=== PATIENT | female | born 1970 | race African-American/Black ===

== ENCOUNTER 2018-11-15 06:27 | Inpatient (IN) | payer OTHER ==
[2018-11-11 17:57] VITALS: BMI 33.0
[2018-11-15] MEDS ORDERED: HEPARIN NA (PORCINE) 5,000 UNITS/ML 1ML VIAL ONE (07:41)
[2018-11-15] MEDS ORDERED: THROMBIN (BOVINE) 5,000 UNIT VIAL TP ONE ×2 (07:42→10:14)
[2018-11-15] MEDS ORDERED: BENZOIN TINCTURE SWABSTICK TP ONE (07:42)
[2018-11-15] MEDS ORDERED: PROPOFOL 20 ML ONE ×14 (07:53→10:55)
[2018-11-15] MEDS ORDERED: fentaNYL CITRATE 250 MCG/5 ML VIAL ONE ×2 (07:53)
[2018-11-15] MEDS ORDERED: SUCCINYLCHOLINE CHLORIDE 200 MG/10 ML VIAL ONE (07:54)
[2018-11-15] MEDS ORDERED: MIDAZOLAM HCL 2 MG/2 ML SINGLE DOSE VIAL ONE (07:54)
[2018-11-15] MEDS ORDERED: ROCURONIUM BROMIDE 50 MG/5 ML VIAL ONE ×2 (07:54)
[2018-11-15] MEDS ORDERED: DEXAMETHASONE SOD PHOSPHATE/PF 10 MG/ML SDV ONE (08:01)
[2018-11-15] MEDS ORDERED: ROPIVACAINE HCL 0.5% 30ML VIAL ONE (08:01)
[2018-11-15] MEDS ORDERED: ceFAZolin SODIUM 1 GM VIAL IVPB ONE ×3 (09:05→11:50)
[2018-11-15] MEDS ORDERED: VANCOMYCIN 1,000 MG VIAL (RESTRICTED TO ID ONLY) IVPB ONE (09:15)
[2018-11-15] MEDS ORDERED: PHENYLEPHRINE HCL 10 MG/1 ML SINGLE DOSE VIAL ONE (10:28)
[2018-11-15] MEDS ORDERED: TRANEXAMIC ACID 1000 MG/10 ML VIAL ONE (10:28)
[2018-11-15] MEDS ORDERED: ceFAZolin SODIUM 1 GM VIAL ONE (10:46)
[2018-11-15] MEDS ORDERED: ONDANSETRON 4 MG/2 ML VIAL ONE (10:46)
[2018-11-15] MEDS ORDERED: VANCOMYCIN 1,000 MG VIAL (RESTRICTED TO ID ONLY) ONE (10:46)
--- NOTE | 2018-11-15 12:35 | PN ---
Progress Note (short form) - Note Progress Note: 48F s/p L4, L5, S1 laminectomies; L3 laminotomy; L4-L5, L5-S1 discectomy; L4-L5 , L5-S1 PLIF; insertion biomechanical devices L4-L5, L5-S1; L4-L5, L5-S1 posterior arthrodesis; L4-L5, L5-S1 posterior instrumentation POD #0. -Admit to ICU post-op. -Pain control: per anaesthesia team; recommend METER SHOP SUPERINTENDENT; No NSAID's. -DVT PPx: - Mechanical only: JIM's, SCD's. -Incentive spirometry q15min. -PT/OT/Rehab, OOB. -WBAT B/L LE. -q4h B/L LE NV checks. -Post-op antibiotics x 2 doses. -NPO until flatus. -f/u AM labs. -f/u drain output. -d/c Durand catheter when patient ambulating comfortably. -Care per medical hospitalist team. -No bending, lifting more than 5lbs, or twisting x 6 months. -Discharge planning: f/u 11/26/2018 at [facility] [place] office; call for appointment; . -Will follow. Bao Torres MD (Orthopaedic Surgery).
[2018-11-15] MEDS ORDERED: ONDANSETRON 4 MG/2 ML VIAL IVPUSH PRN ×2 (12:42→13:38)
[2018-11-15] MEDS ORDERED: LORATADINE 10 MG TABLET PO PRN (12:42)
--- NOTE | 2018-11-15 12:42 | OP ---
Operative Note - Note: Operative Date: 11/15/18 Pre-Operative Diagnosis: 1. L4-L5, L5-S1 intervertebral disc disorder with associated lower extremity radiculopathy. 2. L4-L5, L5-S1 spinal stenosis with neurogenic claudication. 3. L4-L5, L5-S1 segmental instability. Operation: 1. L4, L5, S1 laminectomies. 2. L3 laminotomy. 3. L4-L5, L5-S1 discectomy. 4. L4-L5, L5-S1 PLIF. 5. Insertion biomechanical devices L4-L5, L5 -S1. 6. L4-L5, L5-S1 posterior arthrodesis. 7. L4-L5, L5-S1 posterior instrumentation. 8. Bone autograft. 9. Bone allograft. 10. Bone marrow aspiration. 11. Stem cell autograft. 12. Complex wound closure (10cm). Post-Operative Diagnosis: Same as Pre-op Surgeon: Bao Torres Staff Scientist: Jerson Torres Anesthesiologist/RELAY ASSEMBLER: Bernard Mcdaniel Anesthesia: General Specimens Removed: L4-L5, L5-S1 discs Estimated Blood Loss (mls): 550 Blood Volume Replaced (mls): 175 (Cell saver) Fluid Volume Replaced (mls): 2,000 (Crystalloid) Operative Report Dictated: Yes
--- NOTE | 2018-11-15 13:18 | OP ---
DATE OF OPERATION: DATE OF DICTATION: 11/15/2018 SURGEON: Bao Torres MD WINDERMAN: Jerson Torres MD PREOPERATIVE DIAGNOSIS: Lumbar disk prolapse with stenosis L4-L5, L5-S1 with associated segmental instability L4-L5, L5-S1. POSTOPERATIVE DIAGNOSIS: Lumbar disk prolapse with stenosis L4-L5, L5-S1 with associated segmental instability L4-L5, L5-S1. OPERATION PERFORMED: 1. Laminectomy L4-L5. 2. Diskectomy L4-L5, L5-S1. 3. Posterior lumbar interbody fusion with autologous bone graft and interbody cage mechanical device at L4-L5, L5-S1. 4. Pedicle screw instrumentation L4-L5, L5-S1. 5. Posterior lateral arthrodesis L4-L5, L5-S1. 6. Incidental durotomy and primary repair. 7. Use of biplanar fluoroscopy and intraoperative neural monitoring. 8. Use of autologous bone graft expanded with allograft and stem cells, bone marrow concentrate. ANESTHESIA: General. ANTIBIOTICS GIVEN: 2 g Kefzol, 1 g vancomycin preoperative, 1 g Kefzol given intraoperatively. DESCRIPTION OF PROCEDURE: Patient was correctly identified. Brought to the operating room. Lumbar spine was prepped and draped in a routine manner with Betadine scrub solution, wiped off with alcohol, DuraPrep applied. Midline incision utilized. After careful verification of levels using lateral fluoroscopic x-ray , the appropriate dissection was taken through the skin and subcutaneous tissue to the tip of the spinous process down the spinous process, over the lamina and facet joints out to the tips of the transverse processes left and right and side. The intertransverse plane was packed with sponges. The verification of levels with anatomical guidelines combined with a lateral fluoroscopic x-ray confirming L4-L5, L5-S1. Using Leksell rongeurs as well as Kerrison upcuts, the L5-S1 laminae were resected. The flavum and complete decompression performed. Some epidural bleeding was dealt with with bipolar Bovie. At the time of the osteotomization of the canal that is imploding the lateral surface inwards, a small spike of bone caused a very small dural tear, which literally revealed leakage much like a geyser. A few No. 4 Nurolon sutures sufficed. The repair was sealed. Test of the dura was with about 3 or 4 Valsalva maneuvers. At the end of that, Surgicel with associated DuraSeal placed onto the already sealed up dura. At that point, we went ahead with the posterior lumbar interbody fusion retracting the dura at L4-L5 from the right to the left and at L5-S1 from the left to the right. The disks were clearly identified. Bipolar Bovie diathermized the veins. The disks were handled in an identical manner with an annulotomy performed posteriorly on the right L4-L5 and on the left L5-S1. Each disk was subjected to scrutiny under x-ray control . The alignment of the axel were appreciated. The disk material was removed with axel. Angelinaon upcuts to cut up the remaining annulus. At the end of that, a serrated curette was utilized in order to remove all remaining soft tissue off the endplates. Once the endplates were healthy, bleeding bone, each interbody space was packed with autologous bone, which was posterior bone that was harvested from the posterior ilium and seated into the interbody space at L4, L5, S1. Two Fortilink cages were used, 1 at L4-L5 and 1 at L5-S1. These were both 10-mm x 22-mm cages. These were press fitted into place , that is, shaving was a size 9 and a size 10 implant utilized. This gave solid fixation at the bone bed, and verification under x-ray revealed excellent positioning of the actual cages. Once they had been completed, the pedicles of L4, L5, S1 were identified using anatomic guidelines using a drill to enter the pedicle appropriately. This enabled accurate seated as close to the endplate as possible. The screws measured size 40 x 6 mm at L4-L5 and size 7.5 x 35 at L5-S1. Screw seating was verified on lateral and AP fluoroscopic x-ray, and neural monitoring revealed complete, safe passage of these screws. Rods were applied to the tulips and the screw heads fixed with the appropriate caps and tightened with the torque device appropriately. No Crosslinks utilized. Too small a space to fix a Crosslink. Dura was then again tested and found to be completely sealed. The posterior lateral arthrodesis was then completed by retracting the muscle laterally and packing the intertransverse plane with autologous bone graft, which was a mixture of autologous as well as allograft corporate compliance officer chips mixed with stem cells, which was the bone marrow aspirate concentrate harvested from the left posterior ilium. This was liberally seated into the L4-L5 alar space to provide a rich bone grafting component. The wounds were thoroughly lavaged. The muscle was trimmed for damaged muscle. Closure muscle 1 Vicryl, fascia 1 Vicryl, subcutaneous 1-0 and 2-0 Vicryl, skin 3-0 Monocryl with Steri-Strips. Drainage, nil. Overall comment, operation tolerated well. No complications except for the small dural tear. MD EBER Mitchell/[id number] MTDD
[2018-11-15] MEDS ORDERED: NEOSTIGMINE METHYLSULFATE 0.5 MG/1 ML - 10 ML MDV ONE (13:25)
[2018-11-15] MEDS ORDERED: LACTATED RINGERS SOLUTION 1,000 ML IV SCH (13:45)
[2018-11-15] MEDS: ACETAMINOPHEN 1000 MG/100 ML VIAL (NON FORMULARY) IVPB SCH ×2 (13:55→18:04)
[2018-11-15] MEDS ORDERED: ACETAMINOPHEN INJECTION 100 ML IVPB ONE (13:55)
[2018-11-15] MEDS: LACTATED RINGERS SOLUTION 1,000 ML IV SCH (14:15)
[2018-11-15] MEDS: HYDROmorphone *PCA* 10MG/50ML DISP.SYRIN PCA SCH (15:25)
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
[2018-11-15] MEDS ORDERED: PHENOL 177 ML SPRAY BOTTLE MM PRN (19:00)
[2018-11-15] MEDS ORDERED: FLUCONAZOLE 100 MG TABLET (UD) PO ONE (19:15)
[2018-11-15] MEDS: ceFAZolin 2 GRAM PREMIX BAG IVPB SCH (20:25)
[2018-11-16] MEDS: ACETAMINOPHEN 1000 MG/100 ML VIAL (NON FORMULARY) IVPB SCH (02:10)
[2018-11-16] MEDS: ceFAZolin 2 GRAM PREMIX BAG IVPB SCH (03:40)
[2018-11-16 06:28] LABS: HEMATOCRIT 28.2 % (32.4-45.2); HEMOGLOBIN 9.4 GM/dL (10.7-15.3); MCH 27.1 pg (25.7-33.7); MCHC 33.3 g/dl (32.0-36.0); MEAN CELL VOLUME 81.2 fl (80-96); MEAN PLT VOLUME 8.7 fl (7.5-11.1); PLATELET COUNT 179 K/MM3 (134-434); RBC 3.47 M/mm3 (3.60-5.2); RDW 15.1 % (11.6-15.6)
--- NOTE | 2018-11-16 07:21 | PN ---
Physical Exam: SUBJECTIVE: Patient seen and examined at bedside this morning. She does not endorse acute complaints. States pain is well controlled with Dilaudid CABLE RESPOOLER. She has not yet passed flatus, or had bowel movement. Denies subjective fevers, chills, chest pain, palpitations, abdominal pain, nausea, vomiting. OBJECTIVE: Vital Signs Period Temp Pulse Resp BP Sys/Porter Pulse Ox Last 24 Hr 97.9 F-99.6 F 62-90 10-20 100-135/56-93 10-100 GENERAL: Awake, alert, and fully oriented, in no acute distress. HEAD: Normal with no signs of trauma. EYES: Pupils equal, round and reactive to light, extraocular movements intact, sclera anicteric, conjunctiva clear. EARS, NOSE, THROAT: Oropharynx clear without exudates. Moist mucous membranes. NECK: Supple without lymphadenopathy, or JVD. LUNGS: Breath sounds equal, clear to auscultation bilaterally. No wheezes, and no crackles. No accessory muscle use. HEART: Regular rate and rhythm, normal S1 and S2 without murmur, rub or gallop. ABDOMEN: Obese. Soft, nontender, not distended. Normoactive bowel sounds X4 quadrants, no guarding, no rebound tenderness. No hepatomegaly palpated or percussed. MUSCULOSKELETAL: Normal range of motion at all joints. No bony deformities or tenderness. UPPER EXTREMITIES: 2+ radial pulses bilaterally, warm, well-perfused. Strength 5 /5 b/l upper extremities. LOWER EXTREMITIES: 2+ doralis pedis pulses, warm, well-perfused. No calf tenderness. No peripheral edema. Strength 5/5 bilateral lower extremities. Sensation intact bilaterally. NEUROLOGICAL: Cranial nerves II-XII intact. Normal speech. No gross focal deficits. PSYCHIATRIC: Cooperative. Good eye contact. Appropriate mood and affect upon my encounter SKIN: Warm, dry. Surgical site bandaged clean, dry. Laboratory Results - last 24 hr 11/15/18 11/15/18 11/16/18 06:35 13:30 05:30 WBC 10.0 RBC 3.47 L Hgb 9.4 L Hct 28.2 L MCV 81.2 MCH 27.1 MCHC 33.3 RDW 15.1 Plt Count 179 MPV 8.7 Blood Type O POSITIVE O POSITIVE Antibody Screen Negative Active Medications Generic Name Dose Route Start Last Admin Trade Name Freq PRN Reason Stop Dose Admin Cholecalciferol 1,000 unit 11/16/18 10:00 Vitamin D3 - PO DAILY KRYSTA Hydrochlorothiazide 25 mg 11/16/18 10:00 Hctz - PO DAILY KRYSTA Hydromorphone HCl 0.2 mg 11/15/18 14:45 11/15/18 15:25 Dilaudid Farmer Vegetable - CABLE RESPOOLER 11/22/18 14:40 0.2 mg CABLE RESPOOLER KRYSTA Administration Protocol Lactated Ringer's 1,000 mls @ 125 mls/hr 11/15/18 12:45 11/15/18 14:15 Lactated Ringers Solution IV 300 mls ASDIR KRYSTA Administration Loratadine 10 mg 11/15/18 12:42 Claritin - PO PRN PRN allergies Losartan Potassium 100 mg 11/16/18 10:00 Cozaar - PO DAILY KRYSTA Ondansetron HCl 4 mg 11/15/18 12:42 Zofran Injection IVPUSH Q6H PRN NAUSEA AND/OR VOMITING Phenol/Menthol 1 spray 11/15/18 19:00 11/15/18 21:20 Chloraseptic - MM 1 sprays Q6H PRN Administration SORE THROAT ASSESSMENT/PLAN: Patient is a 48 year old female with history of hypertension, allergies, s/p L3 laminotomy; L4- S1 laminectomies, discectomy; PLIF; posterior arthrodesis; posterior instrumentation. Cardiovascular Hypertension -Hydrochlorothiazide 25mg PO daily -Losartan 100mg PO daily -Monitor vital signs closely Pulmonary -No respiratory distress. Saturating well on room air -Chloraseptic spray for sore throat -Incentive spirometer Q15 minutes -Maintain oxygen saturation greater than 90%. Musculoskeletal -Patient is POD #1 s/p L4, L5, S1 laminectomies; L3 laminotomy; L4-L5, L5-S1 discectomy; L4-L5, L5-S1 PLIF; insertion biomechanical devices L4-L5, L5-S1; L4- L5, L5-S1 posterior arthrodesis; L4-L5, L5-S1 posterior instrumentation with Dr. Torres. -Neuro checks Q4H -Dilaudid CABLE RESPOOLER for pain control -Ofirmev 1000mg IV Q8H PRN -Follow drain, lange catheter outputs. D/C lange catheter today. -Physical therapy evaluation Gastrointestinal -Patient is NPO until passing flatus. -IV Lactated Ringer's at 125mL/ hour -Zofran 4mg IV Q6H PRN for nausea, vomiting -Colace 100mg PO -Miralax 17 grams PO ID -Patient received Cefazolin 2grams IV x2 doses post-operatively FEN -IV Lactated Ringer's at 125mL/ hour -Within normal limits, follow CMP and replete as necessary -NPO until passing flatus Prophylaxis -No chemical anticoagulation, per surgery. -SCDs, TEDs bilateral lower extremities Disposition: -Patient for transfer to medical-surgical floor per surgery. Visit type - Emergency Visit Emergency Visit: Yes ED Registration Date: 11/15/18 Care time: The patient presented to the Emergency Department on the above date and was hospitalized for further evaluation of their emergent condition. - New Patient This patient is new to me today: No - Critical Care Critical Care patient: Yes Total Critical Care Time (in minutes): 35 Critical Care Statement: The care of this patient involved high complexity decision making to prevent further life threatening deterioration of the patient 's condition and/or to evaluate & treat vital organ system(s) failure or risk of failure. - Discharge Referral Referred to [facility] Med P.C.: No
[2018-11-16 09:01] LABS: ANION GAP 7 MMOL/L (8-16); CALCIUM 8.4 mg/dL (8.5-10.1); CHLORIDE 105 mmol/L (98-107); CO2 32 mmol/L (21-32); GLUCOSE,RANDOM 119 mg/dL (74-106); POTASSIUM 4.2 mmol/L (3.5-5.1); SODIUM 143 mmol/L (136-145)
[2018-11-16] MEDS ORDERED: PT OWN MED DRAWER 7, Y5N ONE (09:12)
[2018-11-16] MEDS ORDERED: LOSARTAN POTASSIUM 50 MG TABLET (FP) PO SCH (10:00)
[2018-11-16] MEDS ORDERED: HYDROCHLOROTHIAZIDE 25 MG TABLET (FP) PO SCH (10:00)
[2018-11-16] MEDS ORDERED: CHOLECALCIFEROL (VITAMIN D3) 1,000 UNIT TABLET (FP) PO SCH (10:00)
--- NOTE | 2018-11-16 11:50 | PN ---
Teaching Attending Note Name of Resident: John Jeanne ATTENDING PHYSICIAN STATEMENT I saw and evaluated the patient. I reviewed the resident's note and discussed the case with the resident. I agree with the resident's findings and plan as documented. SUBJECTIVE: Patient seen and examined in the ICU. Awake and alert. Pain seems controlled on Dilaudid RN POST PARTUM. No CP or SOB. Some cough with scant clear sputum. Intake & Output 11/13/18 11/14/18 11/15/18 11/16/18 23:59 23:59 23:59 23:59 Intake Total 3500 Output Total 2950 Balance 550 Weight 175 lb Last Vital Signs Temp Pulse Resp BP Pulse Ox 98.0 F 93 H 24 H 105/85 99 11/16/18 10:00 11/16/18 10:00 11/16/18 10:00 11/16/18 10:00 11/16/18 09:00 Active Medications Cholecalciferol (Vitamin D3 -) 1,000 unit PO DAILY [facility] Last Admin: 11/16/18 09:31 Dose: 1,000 unit Hydrochlorothiazide (Hctz -) 25 mg PO DAILY [facility] Last Admin: 11/16/18 09:35 Dose: Not Given Hydromorphone HCl (Dilaudid Clinical Product Specialist -) 0.2 mg RN POST PARTUM RN POST PARTUM [facility]; Protocol Stop: 11/22/18 14:40 Last Admin: 11/15/18 15:25 Dose: 0.2 mg Lactated Ringer's (Lactated Ringers Solution) 1,000 mls @ 125 mls/hr IV ASDIR [facility] Last Admin: 11/15/18 14:15 Dose: 300 mls Loratadine (Claritin -) 10 mg PO PRN PRN PRN Reason: allergies Losartan Potassium (Cozaar -) 100 mg PO DAILY [facility] Last Admin: 11/16/18 09:35 Dose: Not Given Ondansetron HCl (Zofran Injection) 4 mg IVPUSH Q6H PRN PRN Reason: NAUSEA AND/OR VOMITING Phenol/Menthol (Chloraseptic -) 1 spray MM Q6H PRN PRN Reason: SORE THROAT Last Admin: 11/15/18 21:20 Dose: 1 sprays GENERAL: Awake, alert, and fully oriented, in no acute distress. HEAD: Normal with no signs of trauma. EYES: Pupils equal, round and reactive to light, extraocular movements intact, sclera anicteric, conjunctiva clear. EARS, NOSE, THROAT: Oropharynx clear without exudates. Moist mucous membranes. NECK: Supple without lymphadenopathy, or JVD. LUNGS: Breath sounds equal, clear to auscultation bilaterally. No wheezes, and no crackles. No accessory muscle use. HEART: Regular rate and rhythm, normal S1 and S2 without murmur, rub or gallop. ABDOMEN: Obese. Soft, nontender, not distended. Normoactive bowel sounds X4 quadrants, no guarding, no rebound tenderness. No hepatomegaly palpated or percussed. MUSCULOSKELETAL: Normal range of motion at all joints. No bony deformities or tenderness. UPPER EXTREMITIES: 2+ radial pulses bilaterally, warm, well-perfused. Strength 5 /5 b/l upper extremities. LOWER EXTREMITIES: 2+ doralis pedis pulses, warm, well-perfused. No calf tenderness. No peripheral edema. Strength 5/5 bilateral lower extremities. Left foot noted cooler than right foot (patient states chronic finding). Sensation intact bilaterally. NEUROLOGICAL: Cranial nerves II-XII intact. Normal speech. No gross focal deficits. PSYCHIATRIC: Cooperative. Good eye contact. Appropriate mood and affect upon my encounter SKIN: Warm, dry. Surgical site bandaged clean, dry. ASSESSMENT/PLAN: POD #1: L4, L5, S1 laminectomies; L3 laminotomy; L4-L5, L5-S1 discectomy; L4-L5 , L5-S1 PLIF; insertion biomechanical devices L4-L5, L5-S1; L4-L5, L5-S1 posterior arthrodesis; L4-L5, L5-S1 posterior instrumentation HTN ABX IVF Pain control O2 as needed VTE prophylaxis Neuro checks PO when passing flatus Incentive Spirometry PT evaluation Follow I & O Floor when OK with surgery Dr Paulino
[2018-11-16 12:00] LABS: BLOOD UREA NITROGEN 12 mg/dL (7-18)
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
[2018-11-16] MEDS ORDERED: DOCUSATE SODIUM 100 MG CAPSULE (FP) PO ONE (12:49)
[2018-11-16] MEDS ORDERED: POLYETHYLENE GLYCOL 3350 119 GM BTL PO ONE (12:49)
--- NOTE | 2018-11-16 14:36 | PN ---
Progress Note (short form) - Note Progress Note: Anesthesia POD#1 S/P 3 level Lumbar Spinal Fusion under GA and TLIP Block VSS,feeling a little dizzy,no N/V,OOB to chair,using Dilaudid DENTURE WAXER Pain is poorly controlled. A/P Continue the Dilaudid DENTURE WAXER,some oral pain meds can be added. Lauren Reese MD.
[2018-11-16] MEDS ORDERED: LORATADINE 10 MG TABLET PO PRN (14:37)
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
[2018-11-16] MEDS: LACTATED RINGERS SOLUTION 1,000 ML IV SCH (20:00)
[2018-11-16] MEDS: ACETAMINOPHEN 500 MG TABLET (FP) PO PRN (22:27)
[2018-11-17] MEDS: LACTATED RINGERS SOLUTION 1,000 ML IV SCH ×3 (04:18→14:28)
[2018-11-17] MEDS: HYDROmorphone *PCA* 10MG/50ML DISP.SYRIN PCA SCH (04:27)
[2018-11-17 07:20] LABS: HEMATOCRIT 28.3 % (32.4-45.2); HEMOGLOBIN 9.5 GM/dL (10.7-15.3); MCHC 33.7 g/dl (32.0-36.0); MEAN PLT VOLUME 8.5 fl (7.5-11.1); PLATELET COUNT 180 K/MM3 (134-434); RBC 3.53 M/mm3 (3.60-5.2); RDW 14.6 % (11.6-15.6); WHITE BLOOD COUNT 9.6 K/mm3 (4.0-10.0)
[2018-11-17] MEDS ORDERED: PHENOL 177 ML SPRAY BOTTLE MM PRN (07:58)
[2018-11-17] MEDS ORDERED: HYDROmorphone *PCA* 10MG/50ML DISP.SYRIN PCA SCH ×2 (07:58→15:00)
[2018-11-17] MEDS ORDERED: ONDANSETRON 4 MG/2 ML VIAL IVPUSH PRN (07:58)
--- NOTE | 2018-11-17 08:39 | PN ---
Physical Exam: SUBJECTIVE: Patient evaluated this morning and reports her pain is present but tolerable. She has not passed gas yet. No other acute complaints. Fever overnight. OBJECTIVE: Vital Signs Temperature 99.3 F 11/17/18 06:34 Pulse Rate 105 H 11/17/18 06:34 Respiratory Rate 20 11/17/18 06:34 Blood Pressure 130/77 11/17/18 06:34 O2 Sat by Pulse Oximetry (%) 97 11/16/18 21:00 GENERAL: The patient is awake, alert, and fully oriented, in no acute distress. LUNGS: Breath sounds equal, clear to auscultation bilaterally, no wheezes, no crackles HEART: Regular rate and rhythm, S1, S2 without murmur, rub or gallop. ABDOMEN: Soft, nontender, nondistended,hypoactive bowel sounds EXTREMITIES: 2+ pulses, warm, well-perfused, no edema. NEUROLOGICAL: Cranial nerves II through XII grossly intact. Normal speech, gait not observed. PSYCH: Normal mood, normal affect. SKIN: Warm, dry, normal turgor, no rashes or lesions noted CBC, BMP 11/17/18 06:00 11/16/18 05:30 Active Medications Acetaminophen (Tylenol -) 1,000 mg PO Q6H PRN PRN Reason: PAIN LEVEL 6-10 Last Admin: 11/16/18 22:27 Dose: 1,000 mg Cholecalciferol (Vitamin D3 -) 1,000 unit PO DAILY KRYSTA Hydrochlorothiazide (Hctz -) 25 mg PO DAILY KYRSTA Hydromorphone HCl (Dilaudid Dye And Chemical Coordinator -) 0.2 mg LUMBER STACKER DRIVER LUMBER STACKER DRIVER KRYSTA; Protocol Stop: 11/22/18 14:40 Lactated Ringer's (Lactated Ringers Solution) 1,000 mls @ 125 mls/hr IV ASDIR KRYSTA Loratadine (Claritin -) 10 mg PO DAILY PRN PRN Reason: allergies Losartan Potassium (Cozaar -) 50 mg PO DAILY KRYSTA Ondansetron HCl (Zofran Injection) 4 mg IVPUSH Q6H PRN PRN Reason: NAUSEA AND/OR VOMITING Phenol/Menthol (Chloraseptic -) 1 spray MM Q6H PRN PRN Reason: SORE THROAT ASSESSMENT/PLAN: #s/p L 3 laminectomy, L4-l5, L5-S1 discectomy; L4-L5, L5-S1 PLIF, posterior instrumentation - Oxycontin 10 mg q12 - Oxycodone f5 mg & 10 mg per pain scale - NPO until flatus - PT - LR @ 125 - spirometry q 1h - cath until ambulatory - CXR shows atelectasis at base - tylenol prn fever #anemia, normocytic - continue to monitor, no baseline - Hgb : 9.5 - asymptomatic #HTN - Losartan 50 mg po daily - HCTZ 25 mg daily #DVT ppx - SCD's Dispo: re evaluate tommorrow Visit type - Emergency Visit Emergency Visit: No - New Patient This patient is new to me today: Yes Date on this admission: 11/17/18 - Critical Care Critical Care patient: No
[2018-11-17] MEDS: HYDROCHLOROTHIAZIDE 25 MG TABLET (FP) PO SCH (09:48)
[2018-11-17] MEDS: LOSARTAN POTASSIUM 50 MG TABLET (FP) PO SCH (09:48)
[2018-11-17] MEDS: CHOLECALCIFEROL (VITAMIN D3) 1,000 UNIT TABLET (FP) PO SCH (09:51)
[2018-11-17] MEDS ORDERED: oxyCODONE HCL 5 MG TABLET PO PRN (11:47)
[2018-11-17] MEDS: oxyCODONE HCL 5 MG TABLET PO PRN (15:38)
--- NOTE | 2018-11-17 15:55 | PN ---
Progress Note (short form) - Note Progress Note: Pain Management Note Patient seen at bedside, METHODS STUDY ANALYST had been discontinued by primary team, dept of anesthesiology will sign off care at this time
--- NOTE | 2018-11-17 16:08 | PATH ---
Surgical Pathology Report Patient Name: TONIE GILMORE Med. Rec. #: [id number] /Age/Gender: 1970 (Age: 48) / F Account: [id number] Location: [facility] MED/SURG Taken: 11/15/2018 Received: 11/15/2018 Reported: 11/17/2018 Physicians: Bao Torres M.D. Specimen(s) Received L4-S1 DISC Clinical History Spondylosis with radiculopathy Final Diagnosis L4-S1 DISC, EXCISION: CARTILAGE WITH DEGENERATIVE CHANGES. BONE NO PATHOLOGIC FINDINGS. Electronically Signed Annelise Marks M.D. Gross Description Received in formalin labeled "L4-S1 disc," is a 4.0 x 3.5 x 0.4 cm aggregate of arteaga-red fragments of fibrocartilaginous tissue. A procurement representative portion is submitted in one cassette. /11/15/201811/15/2018
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
[2018-11-17] MEDS: oxyCODONE HCL 10 MG SUSTAINED ACTING TABLET PO SCH (21:28)
[2018-11-17] MEDS: ACETAMINOPHEN 500 MG TABLET (FP) PO PRN (21:29)
[2018-11-18] MEDS: LACTATED RINGERS SOLUTION 1,000 ML IV SCH (02:30)
[2018-11-18] MEDS: oxyCODONE HCL 5 MG TABLET PO PRN ×2 (07:50→16:25)
[2018-11-18 08:59] LABS: HEMATOCRIT 28.1 % (32.4-45.2); HEMOGLOBIN 9.2 GM/dL (10.7-15.3); MCH 26.6 pg (25.7-33.7); MCHC 32.8 g/dl (32.0-36.0); MEAN CELL VOLUME 81.3 fl (80-96); MEAN PLT VOLUME 8.7 fl (7.5-11.1); PLATELET COUNT 181 K/MM3 (134-434); RBC 3.46 M/mm3 (3.60-5.2); RDW 14.4 % (11.6-15.6); WHITE BLOOD COUNT 11.1 K/mm3 (4.0-10.0)
[2018-11-18 09:39] LABS: URINE APPEARANCE CLEAR; URINE BILIRUBIN NEGATIVE (<2.0 mg/dL); URINE COLOR YELLOW; URINE GLUCOSE (UA) NEGATIVE (NEGATIVE); URINE KETONE 1+ (NEGATIVE); URINE LEUK ESTERASE NEGATIVE (NEGATIVE); URINE NITRITE NEGATIVE (NEGATIVE); URINE PROTEIN 1+ (NEGATIVE); URINE UROBILINOGEN NEGATIVE mg/dL (0.2-1.0)
[2018-11-18] MEDS: oxyCODONE HCL 10 MG SUSTAINED ACTING TABLET PO SCH ×2 (09:48→21:58)
[2018-11-18] MEDS: CHOLECALCIFEROL (VITAMIN D3) 1,000 UNIT TABLET (FP) PO SCH (09:49)
[2018-11-18] MEDS: LOSARTAN POTASSIUM 50 MG TABLET (FP) PO SCH (09:49)
[2018-11-18] MEDS: HYDROCHLOROTHIAZIDE 25 MG TABLET (FP) PO SCH (09:49)
[2018-11-18 09:56] LABS: EPI CELLS RARE /HPF (FEW); URINE BACTERIA RARE /hpf (NONE SEEN); URINE MUCUS RARE
[2018-11-18 09:56] LABS: ANION GAP 8 MMOL/L (8-16); BLOOD UREA NITROGEN 7 mg/dL (7-18); CALCIUM 8.4 mg/dL (8.5-10.1); CHLORIDE 101 mmol/L (98-107); CO2 31 mmol/L (21-32); CREATININE 0.9 mg/dL (0.55-1.3); GLUCOSE,RANDOM 96 mg/dL (74-106); POTASSIUM 3.2 mmol/L (3.5-5.1); SODIUM 140 mmol/L (136-145)
--- NOTE | 2018-11-18 11:41 | PN ---
Physical Exam: SUBJECTIVE: Patient passed flatus and soft diet started. Patient able to walk and going to the bathroom, reports pain is well controlled with medication. Patient had fever overnight. OBJECTIVE: Vital Signs Temperature 100.7 F H 11/18/18 06:00 Pulse Rate 97 H 11/18/18 06:00 Respiratory Rate 20 11/18/18 06:00 Blood Pressure 127/69 11/18/18 06:00 O2 Sat by Pulse Oximetry (%) 96 11/17/18 20:27 GENERAL: The patient is awake, alert, and fully oriented, in no acute distress. LUNGS: Breath sounds equal, clear to auscultation bilaterally, no wheezes, no crackles HEART: Regular rate and rhythm, S1, S2 without murmur, rub or gallop. ABDOMEN: Soft, nontender, nondistended,hypoactive bowel sounds EXTREMITIES: 2+ pulses, warm, well-perfused, no edema. large dressing covering site of operation along lower back NEUROLOGICAL: ROM intact, sensation intact bilaterally PSYCH: Normal mood, normal affect. SKIN: Warm, dry, normal turgor, no rashes or lesions noted CBC, BMP 11/18/18 07:52 11/18/18 07:52 Active Medications Acetaminophen (Tylenol -) 1,000 mg PO Q6H PRN PRN Reason: PAIN LEVEL 6-10 Last Admin: 11/17/18 21:29 Dose: 1,000 mg Cholecalciferol (Vitamin D3 -) 1,000 unit PO DAILY [facility] Last Admin: 11/18/18 09:49 Dose: 1,000 unit Hydrochlorothiazide (Hctz -) 25 mg PO DAILY [facility] Last Admin: 11/18/18 09:49 Dose: 25 mg Loratadine (Claritin -) 10 mg PO DAILY PRN PRN Reason: allergies Losartan Potassium (Cozaar -) 50 mg PO DAILY [facility] Last Admin: 11/18/18 09:49 Dose: 50 mg Ondansetron HCl (Zofran Injection) 4 mg IVPUSH Q6H PRN PRN Reason: NAUSEA AND/OR VOMITING Oxycodone HCl (Roxicodone -) 5 mg PO Q6H PRN PRN Reason: PAIN LEVEL 1-5 Oxycodone HCl (Oxycontin -) 10 mg PO BID [facility] Last Admin: 11/18/18 09:48 Dose: 10 mg Oxycodone HCl (Roxicodone -) 10 mg PO Q6H PRN PRN Reason: PAIN LEVEL 6-10 Last Admin: 11/18/18 07:50 Dose: 10 mg Phenol/Menthol (Chloraseptic -) 1 spray MM Q6H PRN PRN Reason: SORE THROAT ASSESSMENT/PLAN: #s/p L 3 laminectomy, L4-l5, L5-S1 discectomy; L4-L5, L5-S1 PLIF, posterior instrumentation, POD 4 - Oxycontin 10 mg q12 - Oxycodone 5 mg & 10 mg per pain scale - soft diet - patient walking with walker - spirometry q 1h - CXR shows atelectasis at base - tylenol prn fever - spoke with Dr. Torres, he will see patient over night and change dressing #fever - likely 2/2 to atelectasis - f/u UA #anemia, normocytic - continue to monitor, no baseline - Hgb : 9.2 - asymptomatic - f/u iron studies, Vb12, folate levels #HTN - Losartan 50 mg po daily - HCTZ 25 mg daily #DVT ppx - ambulation Dispo: likely leave tomorrow if afebrile overnight, will need discharge with walker Visit type - Emergency Visit Emergency Visit: No - New Patient This patient is new to me today: No - Critical Care Critical Care patient: No
[2018-11-18] MEDS ORDERED: POTASSIUM CHLORIDE TABS 20 MEQ TABLET.ER (FP) PO ONE (11:42)
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
[2018-11-18] MEDS: ACETAMINOPHEN 500 MG TABLET (FP) PO PRN (18:27)
[2018-11-19 06:50] LABS: HEMATOCRIT 27.5 % (32.4-45.2); HEMOGLOBIN 9.1 GM/dL (10.7-15.3); MCH 26.7 pg (25.7-33.7); MCHC 33.1 g/dl (32.0-36.0); MEAN CELL VOLUME 80.8 fl (80-96); MEAN PLT VOLUME 8.3 fl (7.5-11.1); PLATELET COUNT 215 K/MM3 (134-434); RDW 14.5 % (11.6-15.6); WHITE BLOOD COUNT 8.9 K/mm3 (4.0-10.0)
[2018-11-19 07:23] LABS: ANION GAP 5 MMOL/L (8-16); BLOOD UREA NITROGEN 10 mg/dL (7-18); CALCIUM 8.2 mg/dL (8.5-10.1); CHLORIDE 99 mmol/L (98-107); CO2 33 mmol/L (21-32); CREATININE 0.9 mg/dL (0.55-1.3); GLUCOSE,RANDOM 106 mg/dL (74-106); POTASSIUM 3.3 mmol/L (3.5-5.1); SODIUM 137 mmol/L (136-145)
[2018-11-19] MEDS ORDERED: CALCIUM (OYSTER SHELL) 500 MG TABLET (FP) PO ONE (08:50)
[2018-11-19] MEDS: POTASSIUM CHLORIDE TABS 20 MEQ TABLET.ER (FP) PO SCH ×2 (09:27→12:00)
[2018-11-19] MEDS: HYDROCHLOROTHIAZIDE 25 MG TABLET (FP) PO SCH (09:27)
[2018-11-19] MEDS: oxyCODONE HCL 10 MG SUSTAINED ACTING TABLET PO SCH ×2 (09:28→21:48)
[2018-11-19] MEDS: LOSARTAN POTASSIUM 50 MG TABLET (FP) PO SCH (09:28)
[2018-11-19] MEDS: CHOLECALCIFEROL (VITAMIN D3) 1,000 UNIT TABLET (FP) PO SCH (09:28)
--- NOTE | 2018-11-19 14:13 | PN ---
Physical Exam: SUBJECTIVE: Patient had another fever yesterday. Patient states the pain is getting better and she is walking well with a walker. Patient has no other acute complaints, she is tolerating her diet. OBJECTIVE: Vital Signs Temperature 98.8 F 11/19/18 10:00 Pulse Rate 101 H 11/19/18 10:00 Respiratory Rate 18 11/19/18 10:00 Blood Pressure 114/83 11/19/18 10:00 O2 Sat by Pulse Oximetry (%) 99 11/18/18 21:00 GENERAL: The patient is awake, alert, and fully oriented, in no acute distress. LUNGS: Breath sounds equal, clear to auscultation bilaterally, no wheezes, no crackles HEART: Regular rate and rhythm, S1, S2 without murmur, rub or gallop. ABDOMEN: Soft, nontender, nondistended,hypoactive bowel sounds EXTREMITIES: 2+ pulses, warm, well-perfused, no edema. large dressing covering site of operation along lower back NEUROLOGICAL: ROM intact, sensation intact bilaterally PSYCH: Normal mood, normal affect. SKIN: Warm, dry, normal turgor, no rashes or lesions noted CBC, BMP 11/19/18 05:45 11/19/18 05:45 Active Medications Acetaminophen (Tylenol -) 1,000 mg PO Q6H PRN PRN Reason: PAIN LEVEL 6-10 Last Admin: 11/18/18 18:27 Dose: 1,000 mg Cholecalciferol (Vitamin D3 -) 1,000 unit PO DAILY [facility] Last Admin: 11/19/18 09:28 Dose: 1,000 unit Hydrochlorothiazide (Hctz -) 25 mg PO DAILY [facility] Last Admin: 11/19/18 09:27 Dose: 25 mg Loratadine (Claritin -) 10 mg PO DAILY PRN PRN Reason: allergies Losartan Potassium (Cozaar -) 50 mg PO DAILY [facility] Last Admin: 11/19/18 09:28 Dose: 50 mg Ondansetron HCl (Zofran Injection) 4 mg IVPUSH Q6H PRN PRN Reason: NAUSEA AND/OR VOMITING Oxycodone HCl (Roxicodone -) 5 mg PO Q6H PRN PRN Reason: PAIN LEVEL 1-5 Oxycodone HCl (Oxycontin -) 10 mg PO BID [facility] Last Admin: 11/19/18 09:28 Dose: 10 mg Oxycodone HCl (Roxicodone -) 10 mg PO Q6H PRN PRN Reason: PAIN LEVEL 6-10 Last Admin: 11/18/18 16:25 Dose: 10 mg Phenol/Menthol (Chloraseptic -) 1 spray MM Q6H PRN PRN Reason: SORE THROAT ASSESSMENT/PLAN: #s/p L 3 laminectomy, L4-L5, L5-S1 discectomy; L4-L5, L5-S1 PLIF, posterior instrumentation, POD 5 - Oxycontin 10 mg q12 - Oxycodone 5 mg & 10 mg per pain scale - soft diet - patient walking with walker - spirometry q 1h - CXR shows atelectasis at base - tylenol prn fever - f/u Dr. Torres, evaluation of surgery following fever #fever - likely 2/2 to atelectasis - CXR clear - UA: no indication of UTI, f/u UCX - f/u blood cx #anemia, normocytic - continue to monitor, no baseline - Hgb : 9.1 - asymptomatic - Iron and transferrin low - Ferrous sulfate 325 mg po BID #HTN - Losartan 50 mg po daily - HCTZ 25 mg daily #DVT ppx - ambulation Dispo: patient can leave per Dr. Torres, likely tonight. Visit type - Emergency Visit Emergency Visit: No - New Patient This patient is new to me today: No - Critical Care Critical Care patient: No
[2018-11-19] MEDS: DOCUSATE SODIUM 100 MG CAPSULE (FP) PO SCH (14:51)
[2018-11-19] MEDS: oxyCODONE HCL 5 MG TABLET PO PRN (14:51)
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
--- NOTE | 2018-11-19 20:41 | PN ---
Progress Note (short form) - Note Progress Note: POD #4 Status post PLIF fusion L4/5 L5/S1 Intermittent fevers Full fever work up has been done. ? final assessment as to cause Atelectasis C/o mild incisional pain No leg pain Dysaesthesia R foot due to intraoperative traction on the nerve root to seat the cage Feels well Original pain gone Walked in the hallway Mskeletal Bandage dry Neuro At baseline Assess Doing well PLAN PT Mobilize D/C home with Pt and home services see in office for wound attention Leave dressing as it is sealed will take down in the office Pain Mx
[2018-11-19] MEDS: FERROUS SO4 325 MG TABLET (FP) PO SCH (21:47)
[2018-11-19] MEDS ORDERED: SENNOSIDES 8.6MG TABLET (FP) PO SCH (22:00)
[2018-11-20 08:43] LABS: HEMATOCRIT 28.2 % (32.4-45.2); HEMOGLOBIN 9.4 GM/dL (10.7-15.3); MCH 26.9 pg (25.7-33.7); MCHC 33.4 g/dl (32.0-36.0); MEAN CELL VOLUME 80.8 fl (80-96); MEAN PLT VOLUME 8.2 fl (7.5-11.1); PLATELET COUNT 258 K/MM3 (134-434); RBC 3.49 M/mm3 (3.60-5.2); RDW 14.6 % (11.6-15.6); WHITE BLOOD COUNT 8.1 K/mm3 (4.0-10.0)
[2018-11-20] MEDS ORDERED: PT OWN MED DRAWER 7, Y5N ONE (08:48)
[2018-11-20] MEDS: LOSARTAN POTASSIUM 50 MG TABLET (FP) PO SCH (09:11)
[2018-11-20] MEDS: HYDROCHLOROTHIAZIDE 25 MG TABLET (FP) PO SCH (09:11)
[2018-11-20] MEDS: DOCUSATE SODIUM 100 MG CAPSULE (FP) PO SCH (09:11)
[2018-11-20] MEDS: FERROUS SO4 325 MG TABLET (FP) PO SCH (09:11)
[2018-11-20] MEDS: CHOLECALCIFEROL (VITAMIN D3) 1,000 UNIT TABLET (FP) PO SCH (09:11)
[2018-11-20] MEDS: oxyCODONE HCL 10 MG SUSTAINED ACTING TABLET PO SCH (09:11)
[2018-11-20 09:34] LABS: ANION GAP 7 MMOL/L (8-16); BLOOD UREA NITROGEN 11 mg/dL (7-18); CALCIUM 8.6 mg/dL (8.5-10.1); CHLORIDE 100 mmol/L (98-107); CO2 31 mmol/L (21-32); GLUCOSE,RANDOM 105 mg/dL (74-106); POTASSIUM 4.4 mmol/L (3.5-5.1); SODIUM 137 mmol/L (136-145)
[2018-11-20 10:02] VITALS: BP 106/64; PULSE 95; TEMP 98.7
[2018-11-20] MEDS: oxyCODONE HCL 5 MG TABLET PO PRN (12:15)
--- NOTE | 2018-11-20 15:41 | DS ---
Physical Exam: SUBJECTIVE: Patient seen and examined with no complaints. Patient is walking with physical therapy. Patient afebrile overnight, examined by Dr. Torres. OBJECTIVE: Vital Signs Temperature 98.7 F 11/20/18 10:00 Pulse Rate 95 H 11/20/18 10:00 Respiratory Rate 20 11/20/18 10:00 Blood Pressure 106/64 11/20/18 10:00 O2 Sat by Pulse Oximetry (%) 98 11/20/18 09:00 PHYSICAL EXAM GENERAL: The patient is awake, alert, and fully oriented, in no acute distress. LUNGS: Breath sounds equal, clear to auscultation bilaterally, no wheezes, no crackles HEART: Regular rate and rhythm, S1, S2 without murmur, rub or gallop. ABDOMEN: Soft, nontender, nondistended,hypoactive bowel sounds EXTREMITIES: 2+ pulses, warm, well-perfused, no edema. large dressing covering site of operation along lower back NEUROLOGICAL: ROM intact, sensation intact bilaterally PSYCH: Normal mood, normal affect. SKIN: Warm, dry, normal turgor, no rashes or lesions noted LABS CBC, BMP 11/20/18 06:00 11/20/18 06:00 HOSPITAL COURSE: Date of Admission:11/15/18 Patient underwent L4, L5, S1 laminectomies, L3 laminotomy, L4-L5, L5-S1 discectomy, L4-L5, L5-S1 PLIF, Insertion biomechanical devices l5-S1, L4-L5, L5- S1 posterior arthrodesis, L4-L5, L5-S1 posterior instrumentation, Bone autograft , Bone allograft, Bone marrow aspiration, Stem cell autograft, Complex wound closure (10cm). patient was able to walk with PT. Patient became febrile, sepsis workup negative. Xray showed atelectasis, fever associated with atelectasis. Patient vitals remained stable. Urine CX: negative Blood CX: negative CXR: no acute process Date of Discharge: 11/20/18 Minutes to complete discharge: 41 Discharge Summary Reason For Visit: SPONDYLOSIS W RADICULPATHY Condition: Good - Instructions Diet, Activity, Other Instructions: You were admitted to the hospital for back surgery done by Dr. Torres. While you were recovering you had fevers, this has now resolved. This was due to atelectasis in your lungs. Atelectasis is when small parts of your lungs stick together. This is a very regular occurrence after surgery, continue to use the spirometer to help resolve the atelectasis. You were evaluated by Dr. Torres and you should make sure you make an appointment to follow up with him within a week. While you were here you were also found to be deficient in iron. Iron is important for your red blood cells. For your iron deficiency please take: Ferrous Sulfate 32 mg twice a day by mouth If the iron supplementation makes you constipated please use the following medication as needed to help: Colace 1 capsule by mouth as needed You may also use over the counter stool softeners Please continue the rest of your home medications as prescribed For your pain please take: Oxycodone 5 mg as needed every 6 hours, do not take more then 4 pills a day Please contact Dr. Torres if you need any more pain medication. Please remember not to bend, lift more than 5lbs regularly or excessive twisting for the next 6 months Please change your bandage daily with dry gauze. Do not submerge your wound and try to keep your bandage dry Please follow-up with Dr. Torres at the [facility] [place] office; call for an appointment at Please make an appointment to follow up with your primary care physician within one week. Return to the ED if you have an trouble going to the bathroom, sharp pains in your back or legs, chest pain, shortness of breath, nausea or vomiting. Referrals: Bao Torres MD [Staff Physician] - Disposition: HOME - Home Medications Comprehensive Discharge Medication List: Ambulatory Orders Cholecalciferol (Vitamin D3) [Vitamin D3] 1,000 unit PO DAILY 11/11/18 Hydrochlorothiazide [Hctz -] 25 mg PO DAILY 11/11/18 Loratadine [Claritin] 10 mg PO PRN PRN 11/11/18 Losartan Potassium 50 mg PO DAILY 11/11/18 Docusate Sodium [Colace -] 100 mg PO DAILY #30 capsule 11/19/18 Ferrous Sulfate 325 mg PO BID #60 tablet 11/19/18 Miscellaneous Medical Supply [Outpatient Order] 1 each ASDIR #1 misc oxyCODONE HCL [Roxicodone -] 5 mg PO Q6H PRN 4 Days #14 tablet MDD 20mg This patient is new to me today: No Emergency Visit: No Critical Care patient: No - Discharge Referral Referred to [facility] No
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
== END 2018-11-20 15:29 | disposition home or self-care (01) | DRG 454 ==
LOC: JSAMEDAYSX 06:27 → JICU 16:18 → J8W 11-16 17:20
PROVIDERS: ADMIT Orthopaedic Surgery Orthopaedic Surgery of the Spine
PROC: 0SG3071 Fusion of Lumbosacral Joint with Autologous Tissue Substitute, Posterior Approach, Posterior Column, Open Approach (ICD-10-PCS; 2018-11-15)
PROC: 0SG10AJ Fusion of 2 or more Lumbar Vertebral Joints with Interbody Fusion Device, Posterior Approach, Anterior Column, Open Approach (ICD-10-PCS; 2018-11-15)
PROC: 00U20KZ Supplement Dura Mater with Nonautologous Tissue Substitute, Open Approach (ICD-10-PCS; 2018-11-15)
PROC: 00Q20ZZ Repair Dura Mater, Open Approach (ICD-10-PCS; 2018-11-15)
PROC: XRG New Technology, Joints, Fusion (ICD-10-PCS; 2018-11-15)
PROC: 07DR0ZZ Extraction of Iliac Bone Marrow, Open Approach (ICD-10-PCS; 2018-11-15)
PROC: B01BZZZ Fluoroscopy of Spinal Cord (ICD-10-PCS; 2018-11-15)
PROC: 4A1004G Monitoring of Central Nervous Electrical Activity, Intraoperative, Open Approach (ICD-10-PCS; 2018-11-15)
PROC: 0SG30AJ Fusion of Lumbosacral Joint with Interbody Fusion Device, Posterior Approach, Anterior Column, Open Approach (ICD-10-PCS; principal; 2018-11-15 08:00)
DX: M48.062 Spinal stenosis, lumbar region with neurogenic claudication (principal); J98.11 Atelectasis; M53.2X7 Spinal instabilities, lumbosacral region; M51.26 Other intervertebral disc displacement, lumbar region; M48.07 Spinal stenosis, lumbosacral region; M43.17 Spondylolisthesis, lumbosacral region; M43.07 Spondylolysis, lumbosacral region; I10 Essential (primary) hypertension; D64.9 Anemia, unspecified; E87.6 Hypokalemia; R50.9 Fever, unspecified; E66.9 Obesity, unspecified; Z68.33 Body mass index [BMI] 33.0-33.9, adult
CPT/HCPCS: 36415; 71045-TC-FY; 76000-TC-FY; 80048; 81003; 81015; 82607; 82728; 82746; 83540; 83735; 84100; 84466; 85027; 86850; 86891; 86900; 86901; 87040; 87086; 88304-TC; 94010; 94760; 97116-GP; 97161-GP; J0131; J1644